=== PATIENT | female | born 1950 | race Caucasian/White ===

== ENCOUNTER 2020-03-02 22:38 | Inpatient (IN) | payer MEDICARE, OTHER ==
[~2020-03-02] VITALS: Ht 172.7 cm; Wt 118.2 kg
--- NOTE | ~2020-03-02 | HEMODYNAMI ---
PATIENT:ADAM FIELDS MEDICAL RECORD: [id number] : 46 [facility]ATION[facility] [id number] ADMISSION DATE: 03/03/20 Generatedon:03/03/202010:14 Patient name: ADAM FIELDS Patient #: [id number] SSN: [id number] : 1950 Date of study: 03/03/2020 Page: Of Hemodynamic Procedure Report Patient Data Patient Demographics Procedure consent was obtained First Name: ADAM Gender: Female Last Name: DIAMOND : 1950 Patient #: [id number] Age: 69 year(s) Race: SSN: [id number] Additional ID: [id number] Contact details Address: [address] [place] [address] State: [place] City: [place] Zip code: [address] Past Medical History Allergies Allergen Reaction Date Comments Reported Other allergy 03/03/2020 CLINDAMYCIN, LEVOFLOXACIN, ZANAFLEX. Admission Admission Data Admission Date: 03/03/2020 Admission Time: 0:48 Admit Source: Emergency Insurance Payor: Medicare department [facility] #[facility] [id number] [facility] Height (in.): 67.72 BSA: 2.28 (m2) Height (cm.): 172 BMI: 39.89 (kg/m2) Weight (lbs.): 260.15 Weight (kg.): 118 Lab Results Lab Result Date: 03/03/2020 Lab Result Time: 4:41 Biochemistry Name Units Result Min Max BUN mg/dl 18 --(---*)-- 7 18 Creatinine mg/dl 1.1 --(--*-)-- 0.6 1.3 CBC Name Units Result Min Max Hematocrit % 36.5 *-(----)-- 42 54 Hemoglobin g/dl 11.3 *-(----)-- 13.5 17.5 Procedure Procedure Types Cath Procedure Diagnostic Procedure [facility] w/Coronaries Sedation Charges Moderate Sedation up to 30 minutes PCI Procedure Coronary Stent Coronary Stent Initial PTCA PTCA Additional Procedure Description Procedure Date Procedure Date: 03/03/2020 Procedure Start Time: 9:25 Procedure End Time: 9:53 Procedure Staff Name Function Calin Castle RN Nurse Tha Srinivasan MD Performing Physician Maynor Mejia RT Monitor Sarika Ryan RT Scrub Indication Shortness of breath Procedure Data Cath Procedure Fluoroscopy Diagnostic fluoroscopy Total fluoroscopy Time: 8.6 time: 8.6 min min Diagnostic fluoroscopy Total fluoroscopy dose: dose: 1363 mGy 1363 mGy Contrast Material Contrast Material Type Amount (ml) Isovue 300 143 Entry Location Entry Primary Successful Side Size Upsize Upsize Entry Closure Succes sful Closure Location (Fr) 1 (Fr) 2 (Fr) Remarks Device Remarks Femoral Right 6 Fr Exoseal artery Short Estimated blood loss: 10 ml Diagnostic catheters Device Type Used For End Catheter Placement MULTIPACK JL 4.0 5Fr Procedure catheter MULTIPACK 3DRC 5Fr Procedure catheter MULTIPACK Pigtail 5 Fr Procedure catheter Procedure Complications No complications Procedure Medications Medication Administration Route Dosage Oxygen etCO2 Nasal cannula 2 l/min Lidocaine 2% added to field 20 Heparin Flush Bag added to field 2 bags (1000units/500ml NS) 0.9% NaCl I.V. 100 ml/hr Versed I.V. 1 mg Fentanyl I.V. 100 mcg Versed I.V. 1 mg Fentanyl I.V. 50 mcg Heparin Bolus I.V. 5000 units Fentanyl I.V. 50 mcg Hemodynamics Rest BSA: 2.28 (m2) HGB: 11.3 (g/dl) O2 Consumption: Estimated: 216.69 (ml/min) O2 Co nsumption indexed: Estimated:95.04 (ml/min/m) Heart Rate: 78 (bpm) Pressure Samples Time Site Value (mmHg) Purpose Heart Use Rate(bpm) 9:31 LV 88/14,22 Snapshot 77 Gradients Valve Time Site Site Mean SEP/DFP Peak To Heart Use 1 2 (mmHg) (sec/min) Peak Rate (mmHg) (bpm) Aortic 9:32 LV AO 81 Snapshots Pre Cath Intra NCS Post Cath Vital Signs Time Heart Resp SPO2 etCO2 NIBP (mmHg) Rhythm Pain Sedation Rate (ipm) (%) (mmHg) Status Level (bpm) 9:18:44 83 16 95 18.7 133/93(110) NSR 0 (11) 10(A) , No pain 9:22:52 75 14 94 9.7 118/74(89) NSR 0 (11) 10(A) , No pain 9:26:54 78 16 94 15 114/76(89) NSR 0 (11) 10(A) , No pain 9:30:55 82 13 92 31.5 105/73(88) NSR 0 (11) 9(A) , No pain 9:34:55 80 13 96 31.5 103/68(78) NSR 0 (11) 9(A) , No pain 9:38:56 77 12 97 0 93/57(73) NSR 0 (11) 9(A) , No pain 9:42:52 76 11 96 39 109/65(88) NSR 0 (11) 9(A) , No pain 9:46:54 79 15 96 36 111/64(77) NSR 0 (11) 9(A) , No pain 9:50:53 86 17 96 33.7 116/78(92) NSR 0 (11) 10(A) , No pain Medications Time Medication Route Dose Verified Delivered Reason Notes Effectiveness by by 9:18:46 Oxygen etCO2 2 Tha Calin used for Nasal l/min St Juan Castle RN procedure cannula 9:18:53 Lidocaine 2% added 20ml Tha Tha for local to vial [facility] anesthetic field MD GIFFORD 9:18:59 Heparin Flush added 2 Tha Tha used for Bag to bags [facility] procedure (1000units/500ml field MD GIFFORD NS) 9:19:08 0.9% NaCl I.V. 100 Tha Layton Per physician ml/hr St Juan Castle RN, MD 9:25:08 Versed I.V. 1 mg Tha Jelaniie for sedation St Juan Castle RN, MD 9:25:14 Fentanyl I.V. 100 Tha Buffie for sedation mcg St Juan Castle RN, MD 9:29:38 Versed I.V. 1 mg Tha Buffie for sedation St Juan Castle RN, MD 9:29:44 Fentanyl I.V. 50 Tha Palomaresie for sedation mcg St Juan Castle RN, MD 9:31:20 Heparin Bolus I.V. 5000 Tha Jelaniie for verifi ed units St Juan Castle RN anticoagulation with dr MD lee 9:38:45 Fentanyl I.V. 50 Tha Layton for sedation [facility] St Juan Castle RN, MD Procedure Log Time Note 8:42:56 Informed consent obtained and on chart 8:58:59 Admit Source: Emergency department 9:00:06 Patient Weight : 260.15 lbs 9:00:10 Patient Height : 67.72 inches 9:00:40 Calin Castle RN sent for patient. Start room use. 9:01:10 Insurance Payor : Medicare 9:02:49 Lab Result : Hemoglobin 11.3 g/dl 9:02:49 Lab Result : Hematocrit 36.5 % 9::49 Lab Result : BUN 18 mg/dl 9:02:49 Lab Result : Creatinine 1.1 mg/dl 9:03:04 Diagnostic Cath Status : Urgent 9:03:21 Indication : Shortness of breath 9:03:33 ACC Patient presents with Non-STEMI CCS Anginal Class 3--Marked limitation of physical activity, angina occurs with ordinary activity.. 9:03:38 Procedure Status Urgent Heart Cath (IP). 9:03:45 Time tracking: Regular hours (M-F 7:00 - 5:00) 9:03:49 Plan of Care:Hemodynamics will remain stable., Cardiac rhythm will remain stable., Comfort level will be maintained., Respiratory function will remain adequate., Patient/ family verbilizes understanding of procedure., Procedure tolerated without complication., Recovers from procedure without complications.. 9:03:58 H&P Date Dictated: 03/03/2020 Within 30 days and on chart.. 9:04:24 Patient allergic to Other allergyCLINDAMYCIN, LEVOFLOXACIN, ZANAFLEX. 9:04:26 Is the patient allergic to Iodine/contrast media? No. 9:07:04 Patient received from Med II to CCL 1 Alert and oriented. Tansferred to table in Supine position. 9:07:06 ECG and BP/O2 sat monitors applied to patient. 9:07:06 Correct patient and procedure confirmed by team. 9:07:06 Warm blankets applied, and beverly hugger turned on for patient comfort. 9:07:07 Pre-op teaching completed and patient verbalized understanding. 9:07:07 Pre-procedure instructions explained to patient. 9:07:08 Family unavailable. 9:07:11 Patient NPO since Midnight. 9:07:18 Is patient on blood thinner?Yes 9:07:21 ACC The patient was administered the following blood thiners within the last 24 hours: ACCAspirin, ACCPlavix 9:17:37 Vital chart was started 9:18:46 Oxygen 2 l/min etCO2 Nasal cannula was administered by Calin Castle RN; used for procedure; Verbal order read back and verified. 9:18:53 Lidocaine 2% 20ml vial added to field was administered by Tha Srinivasan MD; for local anesthetic; Verbal order read back and verified. 9:18:59 Heparin Flush Bag (1000units/500ml NS) 2 bags added to field was administered by Tha Srinivasan MD; used for procedure; Verbal order read back and verified. 9:19:08 0.9% NaCl 100 ml/hr I.V. was administered by Calin Castle RN; Per physician; Verbal order read back and verified. 9:21:34 Patient diabetic? No. 9:21:38 Previous problem with sedation/anesthesia? No ? 9:22:17 Snore? Yes 9:22:18 Deviated septum? No 9:22:18 Sleep apnea? No 9:22:19 Opens mouth fully? Yes 9:22:24 Sticks out tongue? Yes 9:23:08 Airway obstruction? No ? 9:23:10 Dentures? No ? 9:23:12 Pre procedure: right dorsailis pedis pulse 2+ Normal; easily identifiable; not easily obliterated 9:23:18 Patient pain scale 4/10 ?. 9:23:21 IV patent on arrival in right forearm with 0.9% NaCl at [facility]. 9:23:23 Lab results completed and on chart. 9:23:29 Risk of Mortality: 0.6% 9:23:43 Risk of blood transfusion: 8.1% 9:23:48 Risk of JUAN F: 15.6% 9:23:52 Right groin area was prepped with chlora-prep and draped in sterile fashion 9:23:58 Sharps counted by scrub and verified by R.N. 9:23:58 Alarms reviewed by R. N. 9:24:00 Use device set Femoral Dx 9:24:01 Bag Decanter () opened to sterile field. 9:24:01 ACIST Syringe (30268) opened to sterile field. 9:24:02 ACIST Hand Control (50747) opened to sterile field. 9:24:02 Medline Cath Pack ([id number]) opened to sterile field. 9:24:03 ACIST Manifold (08231) opened to sterile field. 9:24:04 DIAGNOSTIC Multipack 5Fr catheter set (LC9480) opened to sterile field. 9:24:05 Tegaderm 4 x 4 (1626W) opened to sterile field. 9:24:06 EMERALD Guide Wire (168-197) opened to sterile field. 9:24:15 Baseline sample Acquired. 9:24:18 Rhythm: sinus rhythm 9:24:20 Full Disclosure recording started 9::25 Final Timeout: patient, procedure, and site verified with staff and physician. All members of the team are in agreement. 9::25 --------ALL STOP TIME OUT------ 9::25 Physician arrived 9:24:26 Right groin site verified by team. 9:24:29 Fire Safety Assessment: A--An alcohol-based skin anteseptic being used preoperatively., C--Open oxygen or nitrous oxide is being used., D--An ESU, laser, or fiber-optic light is being used. 9:24:33 Physical assessment completed. ASA score P 3 - A patient with severe systemic disease as per Tha Srinivasan MD. 9:24:37 SHEATH 6FR Hargill (HAC996) opened to sterile field. 9:24:46 3a) 45-59 Moderately reduced kidney function. 9:24:49 Maximum allowable contrast dose (3.7 X eGFR X 0.75)144 ml. 9:24:52 Sedation plan: IV Moderate Sedation Medication:Versed, Fentanyl 9:25:08 Versed 1 mg I.V. was administered by Calin Castle RN; for sedation; Verbal order read back and verified. 9:25:14 Fentanyl 100 mcg I.V. was administered by Calin Castle RN; for sedation; Verbal order read back and verified. 9:25:35 PTS WAS CALLED AND UPDATED ON PROCEDURE STATUS. 9:25:52 Procedure started. 9:25:55 Local anesthetic to right femoral artery with Lidocaine 2% by Tha Srinivasan MD.INITIAL ACCESS ONLY 9:26:27 A 6 Fr Short sheath was inserted into the Right Femoral artery 9::55 Zero performed for pressure channel P1 9::06 Zero performed for pressure channel P1 9::51 A MULTIPACK JL 4.0 5Fr catheter was advanced over the wire and used for Procedure. 9:28:25 INFLATOR Merit BasixCompak (PV0701) opened to sterile field. 9::25 WHISPER 300cm guide wire ([id number]) opened to sterile field. 9:28:31 GUIDE 6FR XBLAD 3.5 catheter ([id number]) opened to sterile field. 9:28:39 LCA angiography performed. 9::43 Catheter exchanged over wire. 9::48 A MULTIPACK 3DRC 5Fr catheter was advanced over the wire and used for Procedure. 9:29:38 Versed 1 mg I.V. was administered by Calin Castle RN; for sedation; Verbal order read back and verified. 9:29:44 Fentanyl 50 mcg I.V. was administered by Calin Castle RN; for sedation; Verbal order read back and verified. 9:30:01 RCA angiography performed. 9:30:03 Catheter exchanged over wire. 9:30:07 A MULTIPACK Pigtail 5 Fr catheter was advanced over the wire and used for Procedure. 9:31:20 Heparin Bolus 5000 units I.V. was administered by Calin Castle RN; for anticoagulation; verified with dr lee Verbal order read back and verified. 9:31:34 LV gram done using VILLANUEVA 9:31:35 LV hemodynamics recorded. 9:31:47 EF : 30 % 9:31:54 Injector settings: Ml/sec: 10, Volume: 20, 9:32:11 Catheter removed. 9:32:26 Proceeding to intervention. 9:33:45 Pre PCI Site: Huslia pCirc has 99% stenosis. 9:33:51 6 Fr XBLAD 3.5 guide catheter was inserted over the wire 9:35:41 Wire advanced across lesion. 9:35:41 WHISPER wire advanced. 9:36:54 Inflate balloon Inflation number: 1 A EMERGE OTW 3.0 x 15 balloon ([id number]) was prepped and advanced across the Prox CX , then inflated to 12 GANGA for 0:30 (min:sec) . 9:38:45 Fentanyl 50 mcg I.V. was administered by Calin Castle RN; for sedation; Verbal order read back and verified. 9:38:53 Balloon removed over the wire. 9:39:53 ACC Pre-intervention YENNY Flow is 3. 9:40:44 Wire redirected to OM. 9:41:25 Place stent Inflation Number: 2 A ANURAG OTW 3.5 x 18 stent ([id number]) was prepped and advanced across the 1st Ob Adriana . The stent was deployed at 6 GANGA for 0:45 (min:sec) . 9:44:55 Inflation number: 1 The stent balloon was then re-inflated across the 1st Ob Adriana to 10 GANGA for 0:30 (min:sec) . 9:47:36 Wire redirected to CX. 9:48:05 Inflation number: 2 The stent balloon was then re-inflated across the Prox CX to 6 GANGA for 0:30 (min:sec) . 9:48:12 Stent catheter was removed intact over wire. 9:48:24 ACC Post-intervention YENNY Flow is 3. 9:48:41 Post PCI Site: Huslia pCirc has 0% stenosis. 9:49:14 Guide catheter removed. 9:49:14 Wire removed. 9:49:21 EXOSEAL 6Fr (EX600) opened to sterile field. 9:49:29 Sheath removed intact; hemostasis achieved with Exoseal to the Right Femoral artery. 9:49:30 Procedure ended.(Physican Out) 9:49:39 Fluoroscopy time 08.60 minutes. 9:49:45 Fluoroscopy dose: 1363 mGy 9:49:45 Flurop Dose total: 1363 9:51:30 Dose Area Product 30517 mGy/cm. 9:51:37 Contrast amount:Isovue 300 143ml. 9:51:48 Maximum allowable dose exceeded? No. 9:51:50 Sharps counted by scrub and verified by R.N. 9:51:54 Insertion/operative site no bleeding no hematoma. 9:51:56 Post-op/insertion site Right Femoral artery dressed using a 4 x 4 and Tegaderm. 9:52:00 Post right femoral artery:stable, soft, clean and dry 9:52:02 Post Procedure Pulses reassessed and unchanged 9:52:04 Post-procedure physical assessment completed. ASA score P 3 - A patient with severe systemic disease as per Tha Srinivasan MD. 9:52:17 Post procedure rhythm: unchanged. 9:52:20 Estimated blood loss: 10 ml 9:52:22 Patient needs reinforcement of post procedure teaching. 9:52:22 Post procedure instruction explained to patient.Patient verbalizes understanding. 9:52:52 Procedure type changed to Cath procedure, Diagnostic procedure, LHC, [facility] w/Coronaries, Sedation Charges, Moderate Sedation up to 30 minutes, PCI procedure, Coronary Stent, Coronary Stent Initial, PTCA, PTCA Additional 9:53:18 Procedure and supply charges have been captured, reviewed, submitted and are correct. 9:53:20 Procedure Complication : No complications 9:53:21 ACT drawn and resulted at 212 seconds. (normal therapeutic range 180-240 seconds). 9:53:22 Vital chart was stopped 9:53:27 [facility] Findings: MVD- PCI performed (see procedure note) 9:53:30 Operative report dictated upon procedure completion. 9:53:31 See physician's report for complete and final results. 9:53:34 Report given to PCU. 9:53:37 Patient transfered to PCU with Stretcher. 9:53:38 Full Disclosure recording stopped 9:53:38 Procedure ended. 9:53:48 ACC-PCI Only Patient was given prescriptions, or instructed by Tha Srinivasan MD to start/continue the following medications upon discharge: Aspirin, Plavix 9:53:49 End room use (Document Last) 10:13:32 Femstop placed over the right femoral artery at 155 mmHg. Hemostasis achieved. Intervention Summary Intervention Notes Time ActionType Lesion and Equipment Action# Pressure Duration Attributes Used 9:36:54 Inflate Prox CX EMERGE OTW 1 12 00:30 balloon 3.0 x 15 balloon ([id number]) 9:41:25 Place stent 1st Ob Adriana ANURAG OTW 3.5 2 6 00:45 x 18 stent ([id number]) 9:44:55 Reinflate 1st Ob Adriana ANURAG OTW 3.5 1 10 00:30 stent x 18 stent balloon ([id number]) 9:48:05 Reinflate Prox CX ANURAG OTW 3.5 2 6 00:30 stent x 18 stent balloon ([id number]) Device Usage Item Name Manufacture Quantity Catalog Number Hospital Part Current M inimal Lot# / Charge Number Stock Stock Serial# Code ACIST Syringe Acist 1 76682 850526 161058 734757 2 0 (07400) Medical Systems Inc Bag Decanter Microtek 1 906346 13440 920945 5 () Medical Inc. Medline Cath Medline 1 [id number] 823595 56437 754738 5 Pack ([id number]) ACIST Hand Acist 1 87899 842747 363241 489790 5 Control Medical (43754) Systems Inc ACIST Acist 1 57410 097196 943767 868170 5 Manifold Medical (20891) Systems Inc DIAGNOSTIC Cardinal 1 CH5412 734444 68732 227838 3 0 Multipack 5Fr Health catheter set (NW7052) Tegaderm 4 x 3M 1 1626W 340568 553868 216309 5 4 (1626W) EMERALD Guide Cardinal 1 502-455 904174 488429 019280 5 Wire Health (502-455) SHEATH 6FR Terumo 1 QGS088 275086 656384 776520 4 0 Hargill (COW608) MULTIPACK JL Cardinal 1 881147 5 4.0 5Fr Health catheter WHISPER 300cm Manuel 1 [id number] 233076 874321 246503 5 guide wire Vascular (7264023CC) INFLATOR Merit 1 ND5198 242346 490337 940906 1 5 [facility] BasixCompak (FX2700) GUIDE 6FR Cardinal 1 23227133 172204 540977 358244 1 0 XBLAD 3.5 Health catheter (76824201) MULTIPACK Cardinal 1 067665 5 3DRC 5Fr Health catheter MULTIPACK Cardinal 1 230487 5 Pigtail 5 Fr Health catheter EMERGE OTW Capron 1 [id number] 354707 001231 711044 5 [id number] 3.0 x 15 Scientific balloon ([id number]) ANURAG OTW 3.5 Medtronic 1 [id number] 914147 6454434 711730 5 [id number] x 18 stent ([id number]) EXOSEAL 6Fr Cardinal 1 EX600 383297 748732 698824 1 0 (EX600) Health Signature Audit [place] Stage Time Signature Unsigned Intra-Procedure 03/03/2020 Maynor Mejia RT(R) 9:55:54 AM RT(R); Calin 03/03/2020 10:13:07 Corrine TURNER; AM Tha Srinivasan MD Intra-Procedure 03/03/2020 Maynor Mejia 10:13:43 AM RT(R); Tha Srinivasan MD [facility] [address] [place] [place] [address]
[2020-03-02] MEDS ORDERED: PROTONIX20 MG PO (22:43)
[2020-03-02] MEDS ORDERED: LIPITOR20 MG PO (22:43)
[2020-03-02 23:03] LABS: BASOPHILS 0.2 % (0-2); EOSINOPHILS 0.8 % (0-7); HEMATOCRIT 39.2 % (36.0-48.0); HEMOGLOBIN 12.3 g/dL (12-16); IMMATURE GRANULOCYTES 0.2 % (0-5); LYMPHOCYTES 12.3 % (15-50); MCH 28.2 pg (26.0-34.0); MCHC 31.4 g/dL (31.0-37.0); MCV 89.9 fL (80.0-100.0); MEAN PLATELET VOLUME 9.1 fL (7.4-10.4); MONOCYTES 6.1 % (2-11); NEUTROPHILS 80.4 % (40-80); PLATELET COUNT 225 10x3/uL (130-400); RBC 4.36 10x6/uL (4.00-5.40); RDW 14.1 % (11.5-14.5); WBC 11.9 10x3/uL (4.8-10.8)
[2020-03-02 23:14] LABS: CALC OSMOLALITY 281 mosm/kg (275-300); CALCIUM 9.2 mg/dL (8.5-10.1); CARBON DIOXIDE 26.4 mmol/L (21.0-32.0); CHLORIDE - SERUM 105 mmol/L (98-107); CREATININE - SERUM 1.1 mg/dL (0.6-1.3); GLUCOSE 121 mg/dL (74-106); SODIUM 140 mmol/L (136-145); UREA NITROGEN 17 mg/dL (7-18); eGFR NON AFRICAN AMERICAN 52 mL/min (90-120)
[2020-03-02 23:37] LABS: ALBUMIN 3.8 g/dL (3.4-5.0); ALKALINE PHOSPHATASE 101 U/L (30-120); ALT (SGPT) 27 U/L (10-68); CKMB 172.4 U/L (0.0-3.6); CREATINE KINASE 1109 UL (21-215); PROTEIN - SERUM 6.9 g/dL (6.4-8.2)
[2020-03-02 23:38] LABS: TROPONIN-I 23.083 ng/mL (0.000-0.060)
--- NOTE | 2020-03-03 01:30 | NUR ---
PT FROM ER VIA WHEELCHAIR, NO DISTRESS NOTED, PT AMBULATED TO BED, NO CONCERNS OR WANTS NOTED, CL IN REACH, SR UP X 2.
[2020-03-03 03:44] VITALS: BP 128/86; Ht 172.7 cm; Wt 118.2 kg
[2020-03-03 05:03] LABS: BASOPHILS 0.1 % (0-2); EOSINOPHILS 1.6 % (0-7); HEMATOCRIT 36.5 % (36.0-48.0); HEMOGLOBIN 11.3 g/dL (12-16); IMMATURE GRANULOCYTES 0.2 % (0-5); LYMPHOCYTES 18.3 % (15-50); MCH 27.5 pg (26.0-34.0); MCV 88.8 fL (80.0-100.0); MEAN PLATELET VOLUME 9.4 fL (7.4-10.4); MONOCYTES 6.4 % (2-11); NEUTROPHILS 73.4 % (40-80); PLATELET COUNT 231 10x3/uL (130-400); RBC 4.11 10x6/uL (4.00-5.40); RDW 14.2 % (11.5-14.5); WBC 9.6 10x3/uL (4.8-10.8)
[2020-03-03 05:26] LABS: INR 1.19 (0.85-1.17)
[2020-03-03 05:27] LABS: APTT 45.1 SECONDS (22.8-39.4)
[2020-03-03 05:54] LABS: CALC OSMOLALITY 284 mosm/kg (275-300); CALCIUM 8.4 mg/dL (8.5-10.1); CARBON DIOXIDE 27.7 mmol/L (21.0-32.0); CHLORIDE - SERUM 107 mmol/L (98-107); CHOL - HDL RATIO 4.9 ratio (2.3-4.1); CHOLESTEROL, TOTAL 170 mg/dL (0-200); CKMB 222.3 U/L (0.0-3.6); CREATININE - SERUM 1.1 mg/dL (0.6-1.3); GLUCOSE 104 mg/dL (74-106); HDL CHOLESTEROL 35 mg/dL (32-96); LDL CHOLESTEROL 101 mg/dL (0-100); LDL-HDL RATIO 2.9 ratio (1.5-3.5); MAGNESIUM - SERUM 1.9 mg/dL (1.8-2.4); PHOSPHOROUS 4.4 mg/dL (2.5-4.9); POTASSIUM - SERUM 4.5 mmol/L (3.5-5.1); SODIUM 142 mmol/L (136-145); TRIGLYCERIDE 171 mg/dL (30-200); UREA NITROGEN 18 mg/dL (7-18); eGFR NON AFRICAN AMERICAN 52 mL/min (90-120)
[2020-03-03 05:57] LABS: CREATINE KINASE 1727 UL (21-215)
--- NOTE | 2020-03-03 07:15 | NUR ---
RECEIVED PT IN BED AAOX4 RESP UNLABORED SKIN W/D COLOR WNL DENIES ANY PAIN OR NEEDS AT THIS TIME
[2020-03-03 08:15] LABS: ALT (SGPT) 42 U/L (10-68)
--- NOTE | 2020-03-03 09:30 | NUR ---
PT TO [employer]ES ASSISTANTS AND SALESPERSONS VIA BED
--- NOTE | 2020-03-03 10:25 | NUR ---
RECEIVED PT BACK TO ROOM VIA BED VSS PPP X4 FEM STOP INTACT TO RT GROIN SLIGHT EDEMA NOTED WILL CONTINUE TO MONITOR
[2020-03-03 10:56] VITALS: BP 112/58
[2020-03-03 14:29] VITALS: BP 119/69
[2020-03-03 18:29] VITALS: BP 127/79
[2020-03-03 21:20] VITALS: BP 100/62
--- NOTE | 2020-03-03 23:33 | NUR ---
INITIAL ROUNDS COMPLETED AT 1914 HRS. PT DENIED ANY DISCOMFORT. ASSESSMENT COMPLETED AT 1954 HRS. VSS. ALERT AND ORIENTED TO PERSON, PLACE AND TIME. ROBERSON. IV TO RAC SL. LUNGS CTA. SR PER CM HR 75. BRUISE NOTED TO LOWER L FELDMAN. BRUISNG NOTED TO R GROIN. AREA CLEAN,DRY AND INTACT AND SOFT TO TOUCH. PALPABLE PERIPHERAL PULSES. PT DENIED ANY DISCOMFORT. PT CURRENTLY RESTING WITH EYES CLOSED. RESP EVEN AND REGULAR. SR UP X2, CALL LIGHT WITHIN REACH.
--- NOTE | 2020-03-04 00:24 | NUR ---
NO CHANGES TO R GROIN NOTED. PALPABLE PERIPHERAL PULSES. DENIES ANY DISCOMFORT. SR UP X2, CALL LIGHT WITHIN REACH.
[2020-03-04 01:30] VITALS: BP 139/78
--- NOTE | 2020-03-04 02:17 | NUR ---
PTRESTING WITH EYES CLOSED. RESP EVEN AND REGULAR. SRUP X1, CALL LIGHT WITHIN REACH.
--- NOTE | 2020-03-04 04:16 | NUR ---
NO CAHNGES TO R GROIN NOTED. PALPABLE PEDAL PULSES. PT DENIES ANY DISCOMFORT. SR UP X2,CALL LIGHT WITHIN REACH.
[2020-03-04 04:43] VITALS: BP 113/64
[2020-03-04 05:57] LABS: BASOPHILS 0.2 % (0-2); EOSINOPHILS 2.8 % (0-7); HEMOGLOBIN 10.2 g/dL (12-16); IMMATURE GRANULOCYTES 0.2 % (0-5); LYMPHOCYTES 25.3 % (15-50); MCH 27.6 pg (26.0-34.0); MEAN PLATELET VOLUME 9.6 fL (7.4-10.4); MONOCYTES 7.6 % (2-11); NEUTROPHILS 63.9 % (40-80); PLATELET COUNT 196 10x3/uL (130-400); RBC 3.69 10x6/uL (4.00-5.40); RDW 14.9 % (11.5-14.5)
[2020-03-04 06:11] LABS: ANION GAP 11.5 mmol/L (8-16); CALCIUM 8.3 mg/dL (8.5-10.1); CARBON DIOXIDE 26.6 mmol/L (21.0-32.0); CREATININE - SERUM 0.9 mg/dL (0.6-1.3); MAGNESIUM - SERUM 2.1 mg/dL (1.8-2.4); PHOSPHOROUS 3.4 mg/dL (2.5-4.9); POTASSIUM - SERUM 4.1 mmol/L (3.5-5.1)
[2020-03-04 06:13] LABS: MCV 92.1 fL (80.0-100.0); WBC 5.7 10x3/uL (4.8-10.8)
--- NOTE | 2020-03-04 06:33 | NUR ---
VSS TRHOUGHOUT NIGHT. SR PER CM. PT DENIED ANY DISCOMFORT. NEEDS MET; WILL CONTINUE TO MONITOR.
--- NOTE | 2020-03-04 07:00 | NUR ---
RECEIVED REPORT. ASSUMED CARE OF PATIENT. PATIENT RESTING WITH EYES CLOSED. EASILY AROUSED. RESP EVEN AND UNLABORED. SR ON TELEMETRY, RATE OF 93. PATIENT DENIES ANY NEEDS THIS AM. REPORTED THAT PATIENT SHOULD D/C HOME TODAY, SP HEART CATH 03/02/20. NO DISTRESS.
--- NOTE | 2020-03-04 09:29 | NUR ---
patient removed telemetry. patient states she thought she did not need it due to she was told she could go home and is now waiting on paperwork. no discharge orders at this time. no distress.
[2020-03-04 10:20] VITALS: BP 134/82
[2020-03-04] MEDS ORDERED: LIPITOR20 MG PO (11:35)
[2020-03-04] MEDS ORDERED: ASPIRIN325 MG PO (11:35)
[2020-03-04] MEDS ORDERED: PLAVIX75 MG PO (11:35)
--- NOTE | 2020-03-04 12:45 | NUR ---
20 GAUGE IV REMOVED FROM RIGHT AC. CATHETER TIP INTACT. NO BLEEDING FROM SITE. 2X2 GAUZE APPLIED AND SECURED WITH BANDAID. TOLERATED IV REMOVAL WELL. TELEMETRY REMOVED AND RETURNED TO ACTUARIAL MANAGER.
--- NOTE | 2020-03-04 12:57 | NUR ---
PATIENT LEFT UNIT VIA WHEELCHAIR AT THIS TIME. PATIENT DISCHARGED TO HOME WITH HER DAUGHTER. PATIENT LEFT UNIT WITH ALL PERSONAL BELONGINGS. PATIENT LEFT UNIT IN STABLE CONDITION. NO DISTRESS UPON LEAVING UNIT.
--- NOTE | 2020-03-06 09:57 | CN ---
PATIENT NAME:ADAM FIELDS MEDICAL RECORD: [id number] : 46 LOCATION:D. D.2114 ADMIT DATE: 03/03/20 ACCOUNT: [id number] CONSULTING PHYSICIAN: HUSSEIN ALFREDO MD REFERRING PHYSICIAN: DENNY VALERIO DO DATE OF CONSULTATION: 03/03/2020 HISTORY OF PRESENT ILLNESS: A 69-year-old female with no known history of coronary artery disease. She has a family history of coronary artery disease as well as dyslipidemia, onset fairly rapid, symptomatology of chest tightness and pressure, this occurred at rest. Finally, presented to [facility], was found to have marked elevated troponin, transferred here for further evaluation and is currently symptom free. We are asked to see her concerning cardiovascular status. PAST MEDICAL HISTORY: Includes; 1. History of obesity status post gastric stapling. 2. Hiatal hernia. 3. Abdominal wall hernia with mesh placement. 4. Dyslipidemia. ALLERGIES: CLINDAMYCIN, LEVOFLOXACIN AND ZANAFLEX. SOCIAL HISTORY: Nonsmoker, nondrinker. Easily able to take care of her all ADLs. No set exercise program. MEDICATIONS: Atorvastatin 20 every day and Protonix 20 every day. REVIEW OF SYSTEMS: The patient reports easy bruising but reports no swollen glands. The patient reports no fever, no night sweats, no significant weight gain, no significant weight loss. No significant exercise tolerance. The patient reports no dry eyes, no irritation, no vision change. Patient reports no difficulty hearing and no ear pain. Patient reports no frequent nose bleeds or nose and sinus problems. Patient reports on arm pain on exertion. No shortness of breath while lying down. No history of heart murmur. Patient reports no cough, no wheezing or coughing up blood. Patient reports no abdominal pain, no vomiting. Normal appetite. No diarrhea and not vomiting blood. No nausea and no constipation. Patient reports no incontinence. No difficulty urinating. No hematuria. No increased frequency. Patient reports no muscle aches. No weakness, no arthralgias, no back pain. No swelling of the extremities. Patient reports no abnormal mole, no jaundice, no rashes. Reports no loss of consciousness. No weakness and no numbness. No seizures, dizziness, or headaches. The patient reports no depression, no sleep disturbance, feeling safe in a relationship and no alcohol abuse. Patient reports on fatigue. Reports no runny nose or sinus pressure. No itching, no hives, and no frequent sneezing. PHYSICAL EXAMINATION: GENERAL: Pleasant female in no acute distress, appears stated age. VITAL SIGNS: Blood pressure 128/86, pulse 85 and regular. HEENT: Normocephalic, atraumatic. NECK: No JVD or bruit. HEART: Regular, S4 gallop is noted. LUNGS: Good air excursion. ABDOMEN: Soft, nontender. CONSULT REPORT [id number] ADAM FIELDS EXTREMITIES: Pulses are 2+. There is no edema. NEUROLOGIC: Grossly intact. DIAGNOSTIC DATA: EKG shows minor nonspecific ST-T changes. IMPRESSION: Non-ST segment elevation myocardial infarction, given minor ST-T changes certainly may be compatible with circumflex disease. Further recommendations based on the above. TRANSINT:[id number] Voice Confirmation ID: [id number] DOCUMENT ID: [id number] HUSSEIN ALFREDO MD at 0957 CC: [id number] DICTATION DATE: 03/03/20815 HEALTH RECORDS TECHNOLOGY TEACHER: 03/03/20 08 DIS IN 03/04/20 [place] [id number] [place] [id number]
--- NOTE | 2020-03-06 09:57 | OP ---
PATIENT NAME: ADAM FIELDS MEDICAL RECORD: [id number] :46 LOCATION:D.M2 D.2114 ADMISSION DATE:03/03/20 SURGEON: HUSSEIN ALFREDO MD DATE OF OPERATION: 03/03/2020 PROCEDURE: Left heart catheterization, selective coronary angiography, right femoral artery approach. CATHETERS: A 5-[place]izen [place] sheath, 5/4 left and right Khanh, 5/4 pig. The procedure was well tolerated. The patient returned to pino, sheath removed. ExoSeal device placed. FINDINGS: Left ventriculography, 30-degree VILLANUEVA view shows global hypokinesis. Overall, function is reduced 30%. CORONARY ANATOMY: LEFT MAIN: Left main is free of disease. LAD: LAD has mild luminal irregularities. No flow obstructive stenosis. CIRCUMFLEX: This is a fairly large circumflex system before the takeoff of the first OM, has a tight 90% plus stenosis, YENNY flow 2 distally. RIGHT CORONARY ARTERY: Somewhat of a codominant system, free of disease. PLAN: Intervention of the circumflex momentarily. DESCRIPTION OF PROCEDURE: After using an indwelling 6-[place]izen [place] sheath, XB LAD guiding catheter provided excellent guide catheter support followed by 300 cm wire was placed across the tightly occluded circumflex down the portion of this vessel. Pre-deployment balloon was a 3.0 x 15 mm Nolan. Stent deployed was a 3.5 x 18 mm Alpine rug-eluting stent up to 14 atmospheres. This showed snowplowing into the true OM1. We were able to transverse the 90% stenosed OM at this point and using the indwelling stent balloon, inflated up to 6-8 atmospheres, reduce this to less than 20% residual. IMPRESSION: Successful percutaneous transluminal angioplasty stenting of the circumflex vessel, percutaneous transluminal coronary angioplasty of obtuse marginal. COMPLICATIONS: None. The patient was previously loaded on Plavix, heparin was used during the case. Sheath closed with ExoSeal device. TRANSINT:[id number] Voice Confirmation ID: [id number] DOCUMENT ID: [id number] HUSSEIN ALFREDO MD at 0957 CC: [id number] DICTATION DATE: 03/03/20 1001 SNAILER: 03/03/20 1231 DIS IN 03/04/20 [facility] [address] [place] [address]
== END 2020-03-04 13:03 | disposition home or self-care (01) | DRG 247 ==
LOC: D.ER 22:38 → D.M2 03-03 00:48
PROVIDERS: Family Medicine; Internal Medicine Interventional Cardiology; ADMIT Family Medicine; ATTEND Family Medicine
PROC: B2111ZZ Fluoroscopy of Multiple Coronary Arteries using Low Osmolar Contrast (ICD-10-PCS; 2020-03-03)
PROC: B2151ZZ Fluoroscopy of Left Heart using Low Osmolar Contrast (ICD-10-PCS; 2020-03-03)
PROC: 027034Z Dilation of Coronary Artery, One Artery with Drug-eluting Intraluminal Device, Percutaneous Approach (ICD-10-PCS; principal; 2020-03-03 09:00)
PROC: 4A023N7 Measurement of Cardiac Sampling and Pressure, Left Heart, Percutaneous Approach (ICD-10-PCS; 2020-03-03 09:00)
DX: I21.4 Non-ST elevation (NSTEMI) myocardial infarction (principal); I25.10 Atherosclerotic heart disease of native coronary artery without angina pectoris; E78.5 Hyperlipidemia, unspecified; D64.9 Anemia, unspecified